=== PATIENT | female | born 1980 | race Caucasian/White ===

== ENCOUNTER 2022-02-21 12:52 | Outpatient (CLI) | payer OTHER ==
--- NOTE | 2022-02-21 10:34 | XRAY Report ---
PROCEDURE: Knee 3 View LT INDICATIONS: LEFT KNEE PAIN TECHNIQUE: 3 views of the left knee(s) were acquired. COMPARISON: None. FINDINGS: Bones: No fractures or dislocations. No suspicious bony lesions. Soft tissues: There is a small joint effusion. No suspicious soft tissue calcifications. IMPRESSION: Small joint effusion. No bony abnormality. If pain persists, consider repeat imaging in 5-7 days to exclude occult fracture. Reviewed by: Allison Lanier MD on 02/21/2022 10:33 AM [facility] Approved by: Allison Lanier MD on 02/21/2022 10:33 AM [facility] Station ID: [id number]
== END 2022-02-21 12:53 | disposition home or self-care (01) ==
LOC: DI.S 12:52
PROVIDERS: ATTEND Physician Assistant Medical
DX: M25.562 Pain in left knee (principal); M25.462 Effusion, left knee